=== PATIENT | female | born 1935 | race African-American/Black ===

== ENCOUNTER 2016-09-28 22:13 | Emergency (ER) | payer MEDICARE, MEDICAID ==
[~2016-09-28] VITALS: Ht 160 cm; Wt 59.0 kg
[~2016-09-28 22:13] MED LIST: ALPR0.5T PO; CHOL400T15 PO; CLOP75TA33 PO; CONSTULOSE PO; CYAN10009 PO; DOC-Q-LACE PO; RISP0.2514 PO; VITAMIN C PO; ZINC PO; [UNRECOGNIZED DRUG - OTHER]; [UNRECOGNIZED DRUG - OTHER]
[2016-09-29] MEDS ORDERED: SODIUM CHLORIDE 0.9% 1,000 ML IV ONE (01:32)
[2016-09-29] MEDS ORDERED: ONDANSETRON HCL 4MG/2ML VIAL IV STA (01:32)
[2016-09-29 02:09] LABS: BASOPHILS % 0.7 % (0.0-2.0); EOSINOPHILS % 2.2 % (0.0-5.0); HEMATOCRIT. 37.4 % (36.0-48.0); HEMOGLOBIN. 12.9 g/dL (12.0-16.0); LYMPHOCYTES % 21.4 % (20.0-50.0); MEAN CORPUSCULAR HEMOGLOBIN 34.5 pg (28.0-32.0); MEAN CORPUSCULAR VOLUME 99.7 fL (81.0-99.0); MEAN PLATELET VOLUME 8.4 fl (7.4-10.4); MONOCYTES % 7.1 % (2.0-8.0); NEUTROPHILS % 68.6 % (40.0-76.0); PLATELET 198 x1000/uL (130-400); RED BLOOD CELL COUNT 3.75 mill/uL (4.2-5.4); RED CELL DISTRIBUTION WIDTH 13.6 % (11.6-14.6)
[2016-09-29 02:23] LABS: CARBON DIOXIDE 28 mEq/L (21-32); CHLORIDE 109 mEq/L (98-107)
[2016-09-29 05:01] VITALS: BP 120/50
== END 2016-09-29 05:15 | disposition home or self-care (01) ==
LOC: ER 22:16
DX: R11.2 Nausea with vomiting, unspecified (principal); E86.0 Dehydration; Z88.5 Allergy status to narcotic agent
CPT/HCPCS: 36415; 80053; 85025; 96361; 96374; 99285; J2405; J7030

== ENCOUNTER 2016-10-11 16:34 | Emergency (ER) | payer MEDICARE, MEDICAID ==
[~2016-10-11] VITALS: Ht 165.1 cm; Wt 75.0 kg
[~2016-10-11 16:34] MED LIST changes: -ALPR0.5T PO; +ALPR0.5T96 PO; +IOHEXOL-300 100 ML BOTTLE ONE; +SODIUM CHLORIDE 0.9% 10ML VIAL ONE
[2016-10-11 17:49] LABS: BASOPHILS % 0.9 % (0.0-2.0); EOSINOPHILS % 2.4 % (0.0-5.0); HEMATOCRIT. 33.5 % (36.0-48.0); HEMOGLOBIN. 11.6 g/dL (12.0-16.0); LYMPHOCYTES % 25.7 % (20.0-50.0); MEAN CORPUSCULAR HEMOGLOBIN 34.5 pg (28.0-32.0); MEAN CORPUSCULAR VOLUME 100.2 fL (81.0-99.0); MEAN PLATELET VOLUME 8.2 fl (7.4-10.4); MONOCYTES % 8.3 % (2.0-8.0); NEUTROPHILS % 62.7 % (40.0-76.0); PLATELET 219 x1000/uL (130-400); RED BLOOD CELL COUNT 3.35 mill/uL (4.2-5.4); RED CELL DISTRIBUTION WIDTH 13.8 % (11.6-14.6)
[2016-10-11 17:54] LABS: CHLORIDE 109 mEq/L (98-107); INR 1.1; PROTHROMBIN TIME 11.4 sec
[2016-10-11 18:04] LABS: CARBON DIOXIDE 30 mEq/L (21-32)
[2016-10-11 18:06] LABS: CLARITY URINE CLEAR (CLEAR); COLOR URINE YELLOW (YELLOW); GLUCOSE URINE NEGATIVE (NEGATIVE); KETONES URINE NEGATIVE (NEGATIVE); LEUKOCYTE ESTERASE URINE NEGATIVE (NEGATIVE); NITRITE URINE NEGATIVE (NEGATIVE); OCCULT BLOOD URINE NEGATIVE (NEGATIVE); PH URINE 5.5 (4.5-8.0); PROTEIN URINE NEGATIVE (NEGATIVE); SPECIFIC GRAVITY URINE 1.018 (1.005-1.030)
[2016-10-11] MEDS ORDERED: MINERAL OIL ENEMA 133ML PR ONE (20:30)
[2016-10-11 21:16] VITALS: BP 129/40
== END 2016-10-11 21:38 | disposition home or self-care (01) ==
LOC: ER 16:54
DX: K56.41 Fecal impaction (principal); I51.9 Heart disease, unspecified; Z88.5 Allergy status to narcotic agent
CPT/HCPCS: 36415; 70450; 74177; 80053; 81003; 83690; 85025; 85610; 99285; A4216; Q9967

== ENCOUNTER 2016-10-28 19:14 | Emergency (ER) | payer MEDICARE, MEDICAID ==
[~2016-10-28] VITALS: Ht 172.7 cm; Wt 79.0 kg
[~2016-10-28 19:14] MED LIST changes: -IOHEXOL-300 100 ML BOTTLE ONE; -SODIUM CHLORIDE 0.9% 10ML VIAL ONE
[2016-10-28 20:48] LABS: BASOPHILS % 0.6 % (0.0-2.0); HEMATOCRIT. 35.7 % (36.0-48.0); HEMOGLOBIN. 12.1 g/dL (12.0-16.0); LYMPHOCYTES % 20.9 % (20.0-50.0); MEAN CORPUSCULAR HEMOGLOBIN 34.2 pg (28.0-32.0); MEAN CORPUSCULAR VOLUME 100.6 fL (81.0-99.0); MEAN PLATELET VOLUME 8.1 fl (7.4-10.4); MONOCYTES % 6.2 % (2.0-8.0); NEUTROPHILS % 70.3 % (40.0-76.0); PLATELET 226 x1000/uL (130-400); RED BLOOD CELL COUNT 3.55 mill/uL (4.2-5.4)
[2016-10-28 20:54] LABS: INR 1.1; PARTIAL THROMBOPLASTIN TIME 22.5 sec (24.0-34.0); PROTHROMBIN TIME 11.1 sec
[2016-10-28 21:03] LABS: CARBON DIOXIDE 26 mEq/L (21-32); CHLORIDE 111 mEq/L (98-107); TROPONIN I < 0.02 ng/mL (0.00-0.04)
[2016-10-28 23:23] VITALS: BP 131/96
== END 2016-10-28 23:36 | disposition home or self-care (01) ==
LOC: ER 19:14
DX: R55 Syncope and collapse (principal); F03.90 Unspecified dementia, unspecified severity, without behavioral disturbance, psychotic disturbance, mood disturbance, and anxiety; I11.9 Hypertensive heart disease without heart failure; Z95.0 Presence of cardiac pacemaker; Z88.5 Allergy status to narcotic agent
CPT/HCPCS: 36415; 71010; 80053; 83690; 84484; 85025; 85610; 85730; 93005; 99285; A4315

== ENCOUNTER 2016-12-27 17:21 | Inpatient (IN) | payer MEDICARE, MEDICAID ==
[~2016-12-27] VITALS: Ht 170.2 cm; Wt 73.0 kg
[~2016-12-27 17:21] MED LIST changes: +ALPR0.5T PO; -ALPR0.5T96 PO
[2016-12-27] MEDS ORDERED: SODIUM CHLORIDE 0.9% 1,000 ML IV ONE (19:15)
[2016-12-27 19:37] LABS: BASOPHILS % 0.1 % (0.0-2.0); EOSINOPHILS % 11.1 % (0.0-5.0); HEMATOCRIT. 35.2 % (36.0-48.0); HEMOGLOBIN. 12.1 g/dL (12.0-16.0); LYMPHOCYTES % 14.2 % (20.0-50.0); MEAN CORPUSCULAR HEMOGLOBIN 33.6 pg (28.0-32.0); MEAN CORPUSCULAR VOLUME 97.5 fL (81.0-99.0); MEAN PLATELET VOLUME 8.4 fl (7.4-10.4); MONOCYTES % 11.1 % (2.0-8.0); NEUTROPHILS % 63.5 % (40.0-76.0); PLATELET 195 x1000/uL (130-400); RED BLOOD CELL COUNT 3.61 mill/uL (4.2-5.4); RED CELL DISTRIBUTION WIDTH 13.2 % (11.6-14.6)
[2016-12-27 19:43] LABS: CARBON DIOXIDE 28 mEq/L (21-32); CHLORIDE 104 mEq/L (98-107)
[2016-12-27 19:49] LABS: TROPONIN I < 0.02 ng/mL (0.00-0.04)
[2016-12-27 20:14] LABS: HEPATITIS B SURFACE ANTIGEN NEGATIVE
[2016-12-27 20:18] LABS: INR 1.1; PROTHROMBIN TIME 11.4 sec (9.4-11.6)
[2016-12-27 20:42] LABS: HEPATITIS B CORE AB IGM NEGATIVE
[2016-12-27 20:44] LABS: HEPATITIS A AB IGM NEGATIVE (NEGATIVE)
[2016-12-27] MEDS ORDERED: ACETAMINOPHEN 650MG/20.3ML UDC PO ONE (21:30)
[2016-12-27 22:05] LABS: CLARITY URINE CLEAR (CLEAR); COLOR URINE YELLOW (YELLOW); GLUCOSE URINE NEGATIVE (NEGATIVE); KETONES URINE NEGATIVE (NEGATIVE); LEUKOCYTE ESTERASE URINE NEGATIVE (NEGATIVE); NITRITE URINE NEGATIVE (NEGATIVE); OCCULT BLOOD URINE 1+ (NEGATIVE); PROTEIN URINE NEGATIVE (NEGATIVE); SPECIFIC GRAVITY URINE 1.025 (1.005-1.030)
[2016-12-27 22:15] LABS: *AMPHETAMINES SCREEN URINE NEGATIVE (NEGATIVE); *BARBITURATES SCREEN URINE NEGATIVE (NEGATIVE); *BENZODIAZEPINES SCREEN URINE NEGATIVE (NEGATIVE); *COCAINE SCREEN URINE NEGATIVE (NEGATIVE); CANNABINOID URINE SCREEN NEGATIVE (NEGATIVE); METHADONE URINE SCREEN NEGATIVE (NEGATIVE); OPIATES URINE SCREEN NEGATIVE (NEGATIVE); PHENCYCLIDINE URINE SCREEN NEGATIVE (NEGATIVE)
[2016-12-28 02:30] VITALS: BP 116/62
[2016-12-28] MEDS ORDERED: CLONIDINE 0.1MG TABLET PO PRN (02:45)
[2016-12-28] MEDS ORDERED: ACETAMINOPHEN 325MG TABLET PO PRN (02:45)
[2016-12-28] MEDS ORDERED: MECLIZINE 25MG TABLET PO PRN (02:45)
[2016-12-28] MEDS ORDERED: ONDANSETRON HCL 4MG/2ML VIAL IV PRN (02:45)
[2016-12-28 04:00] VITALS: BP 140/64
[2016-12-28] MEDS: SODIUM CHLORIDE 0.9% 1,000 ML IV SCH ×2 (04:13→17:02)
[2016-12-28] MEDS: LEVOFLOXACIN 500MG PREMIX 100 ML IV SCH (05:06)
[2016-12-28 08:00] VITALS: BP 135/50
[2016-12-28] MEDS: ASPIRIN 81MG TABLET PO SCH (08:31)
[2016-12-28 09:24] LABS: HEMATOCRIT. 36.5 % (36.0-48.0); HEMOGLOBIN. 12.1 g/dL (12.0-16.0); MEAN CORPUSCULAR HEMOGLOBIN 33.4 pg (28.0-32.0); MEAN CORPUSCULAR VOLUME 100.4 fL (81.0-99.0); MEAN PLATELET VOLUME 8.4 fl (7.4-10.4); PLATELET 162 x1000/uL (130-400); RED BLOOD CELL COUNT 3.63 mill/uL (4.2-5.4); RED CELL DISTRIBUTION WIDTH 13.5 % (11.6-14.6)
[2016-12-28] MEDS ORDERED: INFLUENZA VIRUS VACCINE 0.5ML SYR IM ONE (10:00)
[2016-12-28 10:03] LABS: CARBON DIOXIDE 29 mEq/L (21-32); CHLORIDE 106 mEq/L (98-107)
[2016-12-28] MEDS ORDERED: TRAMADOL 50MG TABLET PO PRN (11:30)
[2016-12-28 11:54] VITALS: BP 149/69
[2016-12-28 13:03] LABS: PLATELET ESTIMATE NORMAL
[2016-12-28 15:53] VITALS: BP 116/71
[2016-12-28 20:00] VITALS: BP 177/70
[2016-12-29] VITALS: BP 146/67
[2016-12-29 04:00] VITALS: BP 128/73
[2016-12-29] MEDS: LEVOFLOXACIN 500MG PREMIX 100 ML IV SCH (05:22)
[2016-12-29] MEDS: SODIUM CHLORIDE 0.9% 1,000 ML IV SCH ×2 (06:24→21:08)
[2016-12-29 08:00] VITALS: BP 115/49
[2016-12-29] MEDS: ASPIRIN 81MG TABLET PO SCH (08:18)
[2016-12-29 09:07] LABS: HEMOGLOBIN. 11.1 g/dL (12.0-16.0); MEAN CORPUSCULAR HEMOGLOBIN 33.7 pg (28.0-32.0); MEAN CORPUSCULAR VOLUME 97.6 fL (81.0-99.0); MEAN PLATELET VOLUME 8.3 fl (7.4-10.4); PLATELET 166 x1000/uL (130-400); RED BLOOD CELL COUNT 3.28 mill/uL (4.2-5.4)
[2016-12-29 09:42] LABS: CARBON DIOXIDE 26 mEq/L (21-32); CHLORIDE 108 mEq/L (98-107); PHOSPHORUS 2.5 mg/dL (2.5-4.9)
[2016-12-29 11:23] LABS: PLATELET ESTIMATE NORMAL
[2016-12-29 12:00] VITALS: BP 106/43
[2016-12-29 16:00] VITALS: BP 110/48
[2016-12-29 20:00] VITALS: BP 124/55
[2016-12-30] VITALS: BP_SYST 131; BP_SYST 139; BP_DIAS 69; BP_DIAS 86
[2016-12-30 04:00] VITALS: BP 145/59
[2016-12-30] MEDS: LEVOFLOXACIN 500MG PREMIX 100 ML IV SCH (05:54)
[2016-12-30] MEDS: ASPIRIN 81MG TABLET PO SCH ×2 (08:54→08:56)
[2016-12-30 12:00] VITALS: BP 117/61
[2016-12-30] MEDS: SODIUM CHLORIDE 0.9% 1,000 ML IV SCH (12:28)
[2016-12-30 16:48] VITALS: BP 153/65
[2016-12-30 20:00] VITALS: BP_SYST 152; BP_SYST 182; BP_DIAS 58; BP_DIAS 68
[2016-12-31] VITALS: BP 148/58
[2016-12-31 04:00] VITALS: BP 142/61
[2016-12-31] MEDS: LEVOFLOXACIN 500MG PREMIX 100 ML IV SCH (05:23)
[2016-12-31] MEDS: SODIUM CHLORIDE 0.9% 1,000 ML IV SCH (05:25)
[2016-12-31 07:11] LABS: BASOPHILS % 0.4 % (0.0-2.0); EOSINOPHILS % 6.3 % (0.0-5.0); HEMATOCRIT. 34.7 % (36.0-48.0); HEMOGLOBIN. 12.1 g/dL (12.0-16.0); LYMPHOCYTES % 40.4 % (20.0-50.0); MEAN CORPUSCULAR VOLUME 97.3 fL (81.0-99.0); MEAN PLATELET VOLUME 8.1 fl (7.4-10.4); MONOCYTES % 6.1 % (2.0-8.0); NEUTROPHILS % 46.8 % (40.0-76.0); PLATELET 201 x1000/uL (130-400); RED BLOOD CELL COUNT 3.57 mill/uL (4.2-5.4); RED CELL DISTRIBUTION WIDTH 13.1 % (11.6-14.6)
[2016-12-31 07:35] LABS: CARBON DIOXIDE 27 mEq/L (21-32); CHLORIDE 108 mEq/L (98-107)
[2016-12-31 08:00] VITALS: BP 153/63
[2016-12-31] MEDS: ASPIRIN 81MG TABLET PO SCH (09:00)
[2016-12-31 09:22] VITALS: BP 153/63
[2016-12-31 16:00] VITALS: BP 147/87
== END 2016-12-31 16:52 | disposition home or self-care (01) | DRG 690 ==
LOC: ER 18:21 → ENRESERV 22:41 → 8WST 12-28 00:56 → EDBEDREQ 12-28 01:01 → EDBEDREQTM 12-28 01:01
PROVIDERS: ADMIT Internal Medicine Nephrology; ATTEND Internal Medicine Nephrology
DX: N39.0 Urinary tract infection, site not specified (principal); I49.5 Sick sinus syndrome; E86.0 Dehydration; F03.90 Unspecified dementia, unspecified severity, without behavioral disturbance, psychotic disturbance, mood disturbance, and anxiety; I10 Essential (primary) hypertension; I25.10 Atherosclerotic heart disease of native coronary artery without angina pectoris; F41.9 Anxiety disorder, unspecified; K21.9 Gastro-esophageal reflux disease without esophagitis; M47.9 Spondylosis, unspecified; Z79.899 Other long term (current) drug therapy; Z79.02 Long term (current) use of antithrombotics/antiplatelets; Z88.6 Allergy status to analgesic agent; Z98.49 Cataract extraction status, unspecified eye; Z96.649 Presence of unspecified artificial hip joint; Z96.653 Presence of artificial knee joint, bilateral; Z90.710 Acquired absence of both cervix and uterus; Z95.0 Presence of cardiac pacemaker; Z87.440 Personal history of urinary (tract) infections; Z85.3 Personal history of malignant neoplasm of breast
CPT/HCPCS: 36415; 71010; 80048; 80053; 80305; 81001; 83036; 83735; 83880; 84100; 84484; 85025; 85610; 85651; 86705; 86709; 86803; 87040; 87086; 87340; 93005; 96360; 96361; 99285; A6261; J1956; J7030

== ENCOUNTER 2019-03-08 12:18 | Emergency (ER) | payer MEDICARE, MEDICAID ==
[~2019-03-08] VITALS: Ht 170.2 cm; Wt 85.0 kg
[~2019-03-08 12:18] MED LIST changes: +ASPI-1393 PO; +CYAN-50 PO; -CYAN10009 PO; +DIAZ5TAB PO; +VALS320T2 PO; -[UNRECOGNIZED DRUG - OTHER]; -[UNRECOGNIZED DRUG - OTHER]
[2019-03-08 13:12] LABS: BASOPHILS % 0.8 % (0.0-2.0); EOSINOPHILS % 4.7 % (0.0-5.0); HEMATOCRIT. 37.1 % (36.0-48.0); HEMOGLOBIN. 12.8 g/dL (12.0-16.0); MEAN CORPUSCULAR HEMOGLOBIN 35.1 pg (28.0-32.0); MEAN CORPUSCULAR VOLUME 101.8 fL (81.0-99.0); MEAN PLATELET VOLUME 8.4 fl (7.4-10.4); MONOCYTES % 8.2 % (2.0-8.0); NEUTROPHILS % 52.3 % (40.0-76.0); PLATELET 254 x1000/uL (130-400); RED BLOOD CELL COUNT 3.65 mill/uL (4.2-5.4); RED CELL DISTRIBUTION WIDTH 13.1 % (11.6-14.6)
[2019-03-08 13:18] LABS: CHLORIDE 110 mEq/L (98-107)
[2019-03-08 13:26] LABS: CLARITY URINE CLEAR (CLEAR); COLOR URINE YELLOW (YELLOW); KETONES URINE NEGATIVE (NEGATIVE); LEUKOCYTE ESTERASE URINE NEGATIVE (NEGATIVE); NITRITE URINE NEGATIVE (NEGATIVE); OCCULT BLOOD URINE 1+ (NEGATIVE); PH URINE 6.5 (4.5-8.0); PROTEIN URINE NEGATIVE (NEGATIVE); SPECIFIC GRAVITY URINE 1.009 (1.005-1.030)
[2019-03-08 14:34] LABS: PROTHROMBIN TIME 10.4 sec (9.6-11.0)
[2019-03-08 15:15] VITALS: BP 160/78
== END 2019-03-08 15:15 | disposition home or self-care (01) ==
LOC: ER 12:18
DX: R30.0 Dysuria (principal); R50.9 Fever, unspecified; R53.1 Weakness; F41.9 Anxiety disorder, unspecified; K21.9 Gastro-esophageal reflux disease without esophagitis; I10 Essential (primary) hypertension; Z87.440 Personal history of urinary (tract) infections; Z87.09 Personal history of other diseases of the respiratory system; Z95.0 Presence of cardiac pacemaker; Z90.710 Acquired absence of both cervix and uterus; Z98.890 Other specified postprocedural states; Z96.649 Presence of unspecified artificial hip joint; Z79.82 Long term (current) use of aspirin; Z79.899 Other long term (current) drug therapy; Z88.6 Allergy status to analgesic agent
CPT/HCPCS: 36415; 81003; 99283

== ENCOUNTER 2019-03-09 12:40 | Inpatient (IN) | payer MEDICARE, MEDICAID ==
[~2019-03-09] VITALS: Ht 170.2 cm; Wt 68.9 kg
[2019-03-09] MEDS ORDERED: OLANZAPINE 10 MG/VIAL IM ONE (14:15)
[2019-03-09 15:35] LABS: BASOPHILS % 0.6 % (0.0-2.0); EOSINOPHILS % 0.2 % (0.0-5.0); HEMATOCRIT. 38.5 % (36.0-48.0); HEMOGLOBIN. 13.2 g/dL (12.0-16.0); LYMPHOCYTES % 9.4 % (20.0-50.0); MEAN CORPUSCULAR HEMOGLOBIN 34.5 pg (28.0-32.0); MEAN CORPUSCULAR VOLUME 100.4 fL (81.0-99.0); MEAN PLATELET VOLUME 8.3 fl (7.4-10.4); MONOCYTES % 4.7 % (2.0-8.0); NEUTROPHILS % 85.1 % (40.0-76.0); PLATELET 264 x1000/uL (130-400); RED BLOOD CELL COUNT 3.83 mill/uL (4.2-5.4); RED CELL DISTRIBUTION WIDTH 13.4 % (11.6-14.6)
[2019-03-09 15:43] LABS: CHLORIDE 110 mEq/L (98-107)
[2019-03-09 15:50] LABS: PROTHROMBIN TIME 10.7 sec (9.6-11.0)
[2019-03-09] MEDS ORDERED: CEFTRIAXONE 1 G PREMIX 50 ML IV ONE (17:30)
[2019-03-09] MEDS ORDERED: DOCUSATE SODIUM 100MG CAPSULE PO PRN (17:45)
[2019-03-09] MEDS ORDERED: ALPRAZOLAM 0.25 MG TABLET PO PRN (17:45)
[2019-03-09] MEDS ORDERED: ACETAMINOPHEN 325MG TABLET PO PRN (17:45)
[2019-03-09] MEDS ORDERED: CEFTRIAXONE 1 G PREMIX 50 ML IV SCH (17:45)
[2019-03-09] MEDS ORDERED: ONDANSETRON HCL 4MG/2ML INJ IV PRN (17:45)
[2019-03-09 17:46] LABS: CLARITY URINE TURBID (CLEAR); COLOR URINE RED (YELLOW); KETONES URINE NEGATIVE (NEGATIVE); LEUKOCYTE ESTERASE URINE 2+ (NEGATIVE); NITRITE URINE POSITIVE (NEGATIVE); OCCULT BLOOD URINE 3+ (NEGATIVE); PROTEIN URINE 3+ (NEGATIVE); SPECIFIC GRAVITY URINE 1.014 (1.005-1.030)
[2019-03-09 21:37] VITALS: BP 134/55
[2019-03-10] VITALS: BP 145/95
[2019-03-10] MEDS ORDERED: NA PHOS,M-B/NA PHOS,DI-BA ENEMA 118ML PR NR (01:00)
[2019-03-10] MEDS: DEXT 5%/0.45% NACL 1000ML 1,000 ML IV SCH ×2 (01:16→19:32)
[2019-03-10 08:00] VITALS: BP 145/61
[2019-03-10] MEDS ORDERED: RISPERIDONE 0.25MG TABLET PO SCH (09:00)
[2019-03-10 10:08] LABS: BASOPHILS % 0.6 % (0.0-2.0); EOSINOPHILS % 2.1 % (0.0-5.0); HEMATOCRIT. 38.8 % (36.0-48.0); HEMOGLOBIN. 13.3 g/dL (12.0-16.0); LYMPHOCYTES % 20.5 % (20.0-50.0); MEAN CORPUSCULAR HEMOGLOBIN 34.7 pg (28.0-32.0); MEAN CORPUSCULAR VOLUME 101.3 fL (81.0-99.0); MEAN PLATELET VOLUME 8.6 fl (7.4-10.4); NEUTROPHILS % 68.8 % (40.0-76.0); PLATELET 261 x1000/uL (130-400); RED BLOOD CELL COUNT 3.83 mill/uL (4.2-5.4); RED CELL DISTRIBUTION WIDTH 13.7 % (11.6-14.6)
[2019-03-10 10:20] LABS: HDL CHOLESTEROL 75 mg/dL (40-59); LDL CHOLESTEROL 64 mg/dL (5-100)
[2019-03-10] MEDS: LISINOPRIL 10MG TABLET PO SCH (11:06)
[2019-03-10 12:00] VITALS: BP 137/53
[2019-03-10 16:00] VITALS: BP 127/66
[2019-03-10 20:00] VITALS: BP 108/72
[2019-03-10] MEDS: CEFTRIAXONE 1 G PREMIX 50 ML IV SCH (21:33)
[2019-03-11] VITALS: BP 127/69
[2019-03-11 04:00] VITALS: BP 151/54
[2019-03-11] MEDS: DEXT 5%/0.45% NACL 1000ML 1,000 ML IV SCH ×2 (06:40→20:29)
[2019-03-11 08:00] VITALS: BP_SYST 173; BP_SYST 212; BP_DIAS 75; BP_DIAS 85
[2019-03-11] MEDS: LISINOPRIL 10MG TABLET PO SCH (08:08)
[2019-03-11] MEDS: CLONIDINE 0.1MG TABLET PO PRN (08:09)
[2019-03-11 12:00] VITALS: BP 122/50
[2019-03-11 16:00] VITALS: BP 123/91
[2019-03-11 20:00] VITALS: BP 133/55
[2019-03-11] MEDS: CEFTRIAXONE 1 G PREMIX 50 ML IV SCH (20:29)
[2019-03-12 00:05] VITALS: BP 123/52
[2019-03-12 04:00] VITALS: BP 131/50
[2019-03-12 06:31] LABS: BASOPHILS % 0.5 % (0.0-2.0); EOSINOPHILS % 5.8 % (0.0-5.0); HEMATOCRIT. 35.1 % (36.0-48.0); HEMOGLOBIN. 12.2 g/dL (12.0-16.0); MEAN CORPUSCULAR HEMOGLOBIN 35.4 pg (28.0-32.0); MEAN CORPUSCULAR VOLUME 101.4 fL (81.0-99.0); MEAN PLATELET VOLUME 8.3 fl (7.4-10.4); MONOCYTES % 9.4 % (2.0-8.0); NEUTROPHILS % 53.3 % (40.0-76.0); PLATELET 251 x1000/uL (130-400); RED BLOOD CELL COUNT 3.46 mill/uL (4.2-5.4); RED CELL DISTRIBUTION WIDTH 13.2 % (11.6-14.6)
[2019-03-12 06:43] LABS: CHLORIDE 111 mEq/L (98-107)
[2019-03-12 08:00] VITALS: BP 136/108
[2019-03-12] MEDS: LISINOPRIL 10MG TABLET PO SCH (11:00)
[2019-03-12] MEDS: DEXT 5%/0.45% NACL 1000ML 1,000 ML IV SCH ×2 (11:01→21:00)
[2019-03-12 12:00] VITALS: BP 123/52
[2019-03-12 16:00] VITALS: BP 147/51
[2019-03-12 20:00] VITALS: BP 129/72
[2019-03-12] MEDS: CEFTRIAXONE 1 G PREMIX 50 ML IV SCH (21:00)
[2019-03-13 00:05] VITALS: BP 132/56
[2019-03-13 04:00] VITALS: BP 125/49
[2019-03-13 08:00] VITALS: BP 159/81
[2019-03-13] MEDS: LISINOPRIL 10MG TABLET PO SCH (09:57)
[2019-03-13 12:00] VITALS: BP 138/79
[2019-03-13] MEDS: DEXT 5%/0.45% NACL 1000ML 1,000 ML IV SCH (13:27)
[2019-03-13] MEDS ORDERED: CALCIUM GLUCONATE 1,000 MG in DEXT 5% WATER 90 ML IV NR (14:00)
[2019-03-13] MEDS: SULFACETAMIDE SODIUM 10% OPHTH DROPS 15ML LEFTEYE SCH ×3 (14:56→21:00)
[2019-03-13 20:00] VITALS: BP 122/48
[2019-03-13] MEDS: CEFTRIAXONE 1 G PREMIX 50 ML IV SCH (21:42)
[2019-03-14] VITALS: BP 125/45
[2019-03-14] MEDS: DEXT 5%/0.45% NACL 1000ML 1,000 ML IV SCH ×2 (00:23→14:16)
[2019-03-14 04:00] VITALS: BP 169/74
[2019-03-14] MEDS: CLONIDINE 0.1MG TABLET PO PRN (05:12)
[2019-03-14 07:12] LABS: BASOPHILS % 0.7 % (0.0-2.0); EOSINOPHILS % 4.6 % (0.0-5.0); HEMATOCRIT. 34.4 % (36.0-48.0); LYMPHOCYTES % 25.2 % (20.0-50.0); MEAN CORPUSCULAR HEMOGLOBIN 34.9 pg (28.0-32.0); MEAN CORPUSCULAR VOLUME 99.7 fL (81.0-99.0); MEAN PLATELET VOLUME 7.5 fl (7.4-10.4); MONOCYTES % 9.5 % (2.0-8.0); PLATELET 260 x1000/uL (130-400); RED BLOOD CELL COUNT 3.45 mill/uL (4.2-5.4)
[2019-03-14 07:24] LABS: CHLORIDE 109 mEq/L (98-107)
[2019-03-14 08:00] VITALS: BP 124/62
[2019-03-14] MEDS: LISINOPRIL 10MG TABLET PO SCH (09:12)
[2019-03-14] MEDS: SULFACETAMIDE SODIUM 10% OPHTH DROPS 15ML LEFTEYE SCH ×2 (09:14→13:21)
[2019-03-14 12:00] VITALS: BP 131/49
[2019-03-14] MEDS ORDERED: SULF5DRO LEFTEYE (13:21)
[2019-03-14] MEDS ORDERED: DOCU-138 PO (13:21)
[2019-03-14 14:13] VITALS: BP 133/52
== END 2019-03-14 16:55 | disposition home health service (06) | DRG 690 ==
LOC: ER 12:45 → 7WST 17:45 → EDBEDREQ 17:55 → ENRESERV 19:21
PROVIDERS: ADMIT Internal Medicine Nephrology; ATTEND Internal Medicine Nephrology
DX: N30.91 Cystitis, unspecified with hematuria (principal); E86.0 Dehydration; F02.80 Dementia in other diseases classified elsewhere, unspecified severity, without behavioral disturbance, psychotic disturbance, mood disturbance, and anxiety; B96.20 Unspecified Escherichia coli [E. coli] as the cause of diseases classified elsewhere; E83.51 Hypocalcemia; G30.9 Alzheimer's disease, unspecified; I12.9 Hypertensive chronic kidney disease with stage 1 through stage 4 chronic kidney disease, or unspecified chronic kidney disease; M19.90 Unspecified osteoarthritis, unspecified site; N18.2 Chronic kidney disease, stage 2 (mild); Z85.3 Personal history of malignant neoplasm of breast; Z90.710 Acquired absence of both cervix and uterus; Z95.0 Presence of cardiac pacemaker; Z79.899 Other long term (current) drug therapy; Z79.82 Long term (current) use of aspirin; Z98.49 Cataract extraction status, unspecified eye
CPT/HCPCS: 36415; 71045; 74176; 80048; 80061; 81003; 83880; 84484; 87077; 87186; 93005; 93970; 96365; 99285; A6261; C1893; J0610; J0696; J3490; J7060